=== PATIENT | female | born 1990 | race Caucasian/White ===

== ENCOUNTER 2019-06-16 09:43 | Emergency (ER) | payer OTHER, SELFPAY ==
[2019-06-16 09:48] VITALS: BP 130/72; PULSE 59; RESP 16; TEMP 36.6; O2SAT 100; BMI 19.8
--- NOTE | 2019-06-16 09:53 | ED_ITS ---
HPI - General Adult General: Chief complaint: General Medical Stated complaint: SYNCOPE Time Seen by Provider: 06/16/19 09:51 Source: patient Mode of arrival: ambulatory Limitations: no limitations History of Present Illness: HPI narrative: Patient was diagnosed with the flu yesterday at the [facility] [place]. Patient reports last night becoming lightheaded and passing out and then having a repeat episode this morning after breakfast. Patient reports poor appetite and poor fluid intake. Patient appears unwell. Patient appears in no pain. Review of Systems General: Reports: 10 or more systems reviewed and unremarkable except in HPI and below Neuro: Reports: other (syncopal episode x2) PFS ED PFSH: Statuses (acute, chronic, etc) shown below reflect problem list status as previously entered and may not be historically accurate Social History Smoking and tobacco status: never smoked Physical Exam Const: COMMON NORMALS: no apparent distress and oriented x3 GENERAL APPEARANCE: cooperative HENMT: COMMON NORMALS: normocephalic, external ears normal, EAC's normal and TM's normal bilaterally HEAD & SCALP: normal to inspection and normocephalic FACE & SINUS: normal facial exam NOSE: nasal discharge GENERAL EAR: hearing not grossly impaired EXTERNAL EAR: Yes external ears normal EXTERNAL AUDITORY CANAL: EAC's normal TYMPANIC MEMBRANE: TM's normal bilaterally MOUTH: moist mucous membranes not abnormal THROAT: posterior oropharynx normal Eye: COMMON NORMALS: PERRL and EOMs intact bilaterally PUPIL: Yes PERRL Neck/C-Spine: COMMON NORMALS: full ROM and no lymphadenopathy Lymph: LYMPHATIC: no lymphedema noted Chest: COMMONS NORMALS: inspection of chest normal and palpation of chest normal Resp: COMMON NORMALS: normal respiratory effort and clear to auscultation bilaterally AUSCULTATION: clear to auscultation bilaterally Cardio: COMMON NORMALS: regular rate and regular rhythm RATE: regular rate RHYTHM: regular rhythm GI: COMMON NORMALS: normal to inspection, nondistended, normoactive bowel sounds and non-tender : COMMON NORMALS: Yes no CVA tenderness BLADDER/KIDNEY EXAM: Yes no CVA tenderness Back/Pelvis: COMMON NORMALS: no CVA tenderness and thoracic and lumbar spine normal to inspection Extremity: COMMON NORMALS: normal to inspection GENERAL: No edema Neuro: COMMON NORMALS: oriented x3, moves all extremities and no focal motor deficits Psych: COMMON NORMALS: mental status grossly normal and cooperative Skin: COMMON NORMALS: no rashes or lesions noted GENERAL SKIN EXAM: no rashes or lesions noted Course ED course: 1039, Dr. Iverson assumed care of patient due to low neutrophil count. wjw Vital Signs: Vital signs: Vital Signs Temperature 97.9 F 06/16/19 09:48 Pulse Rate 68 06/16/19 13:02 Respiratory Rate 18 06/16/19 13:02 Blood Pressure 115/55 06/16/19 13:02 Pulse Oximetry 98 06/16/19 13:02 [facility] - General Adult Lab Data: Labs: Lab Results 06/16/19 06/16/19 06/16/19 Range/Units 10:09 10:09 10:15 WBC 1.5 L (4.0-10.0) 10^3/ uL RBC 4.16 (4.1-5.3) 10^6/u L Hgb 12.6 (11.5-15.3) g/dL Hct 38.8 (37.0-47.0) % MCV 93.3 (81-99) fL MCH 30.3 (28.0-34.0) pg MCHC 32.5 (30.0-36.0) g/dL RDW 11.9 L (12.1-15.1) % Plt Count 147 (130-400) 10^3/c mm MPV 10.7 H (7.4-10.4) fL Neut % (Auto) 45.1 % Lymph % (Auto) 44.4 % Clinton % (Auto) 9.8 % Eos % (Auto) 0.0 % Baso % (Auto) 0.0 % Neut # (Auto) 0.7 L* (1.8-7.7) 10^3/u L Lymph # (Auto) 0.7 L (0.8-4.8) 10^3/u L Clinton # (Auto) 0.2 (0.2-0.9) 10^3/u L Eos # (Auto) 0.0 (0.0-0.8) 10^3/u L Baso # (Auto) 0.0 (0.0-0.1) 10^3/u L Nucleated RBC % (a uto) 0 % Nucleated RBCs # 0.0 /100WBC Sodium 139 (136-145) mmol/L Potassium 3.8 (3.5-5.1) mmol/L Chloride 104 (98-107) mmol/L Carbon Dioxide 23 (22-29) mmol/L Anion Gap 15.8 (5-19) BUN 13 (6-20) mg/dL Creatinine 0.8 (0.5-0.9) mg/dL GFR Calculation 86.7 L (90-130) mL/min Glucose 118 H (65-115) mg/dL Lactic Acid 1.1 (0.5-2.2) mmol/L Calcium 8.9 (8.5-10.5) mg/dL Total Bilirubin 0.4 (0.15-1.2) mg/dL AST 28 (0-32) U/L ALT 19 (0-33) U/L Alkaline Phosphata se 54 (35-105) IU/L Total Protein 6.7 (6.6-8.7) g/dL Albumin 4.4 (3.5-5.2) g/dL Globulin 2.3 (1.3-4.6) g/dL Urine Color (Yellow) Urine Appearance (CLEAR) Urine pH (5-7) Ur Specific Gravit y (1.005-1.030) Urine Protein (Negative) Urine Glucose (UA) (Normal) Urine Ketones (Negative) Urine Occult Blood (Negative) Urine Nitrate (Negative) Urine Bilirubin (NEGATIVE) Urine Urobilinogen (Negative) mg/dL Ur Leukocyte Jessi ase (Negative) Urine RBC (0-2) /hpf Urine WBC (0-5) /hpf Ur Squamous Epith Cells (0-5) Urine Bacteria (NONE) Hyaline Casts Urine Mucus Urine HCG, Qual (Negative) Influenza Type A A g (Negative) POC Influenza B Ag (Negative) 06/16/19 06/16/19 06/16/19 Range/Units 11:30 11:43 11:43 WBC (4.0-10.0) 10^3/ uL RBC (4.1-5.3) 10^6/u L Hgb (11.5-15.3) g/dL Hct (37.0-47.0) % MCV (81-99) fL MCH (28.0-34.0) pg MCHC (30.0-36.0) g/dL RDW (12.1-15.1) % Plt Count (130-400) 10^3/c mm MPV (7.4-10.4) fL Neut % (Auto) % Lymph % (Auto) % Clinton % (Auto) % Eos % (Auto) % Baso % (Auto) % Neut # (Auto) (1.8-7.7) 10^3/u L Lymph # (Auto) (0.8-4.8) 10^3/u L Clinton # (Auto) (0.2-0.9) 10^3/u L Eos # (Auto) (0.0-0.8) 10^3/u L Baso # (Auto) (0.0-0.1) 10^3/u L Nucleated RBC % (a uto) % Nucleated RBCs # /100WBC Sodium (136-145) mmol/L Potassium (3.5-5.1) mmol/L Chloride (98-107) mmol/L Carbon Dioxide (22-29) mmol/L Anion Gap (5-19) BUN (6-20) mg/dL Creatinine (0.5-0.9) mg/dL GFR Calculation (90-130) mL/min Glucose (65-115) mg/dL Lactic Acid (0.5-2.2) mmol/L Calcium (8.5-10.5) mg/dL Total Bilirubin (0.15-1.2) mg/dL AST (0-32) U/L ALT (0-33) U/L Alkaline Phosphata se (35-105) IU/L Total Protein (6.6-8.7) g/dL Albumin (3.5-5.2) g/dL Globulin (1.3-4.6) g/dL Urine Color Yellow (Yellow) Urine Appearance Sl hazy (CLEAR) Urine pH 5 (5-7) Ur Specific Gravit y 1.020 (1.005-1.030) Urine Protein Trace (Negative) Urine Glucose (UA) Norm (Normal) Urine Ketones 1+ H (Negative) Urine Occult Blood Neg (Negative) Urine Nitrate Negative (Negative) Urine Bilirubin 1+ H (NEGATIVE) Urine Urobilinogen 1 H (Negative) mg/dL Ur Leukocyte Jessi ase Negative (Negative) Urine RBC 0-4 H (0-2) /hpf Urine WBC 10-15 H (0-5) /hpf Ur Squamous Epith Cells 5-10 H (0-5) Urine Bacteria 1+ H (NONE) Hyaline Casts 0-4 H Urine Mucus 2+ Urine HCG, Qual Negative (Negative) Influenza Type A A g Negative (Negative) POC Influenza B Ag Positive H (Negative) Discharge Plan Discharge Patient Disposition: Home, Self-Care Clinical Impression: Influenza B Condition: Stable Prescriptions: New Tamiflu 75 mg capsule 75 mg PO BID 5 Days Qty: 10 RF: 0 Zofran 4 mg tablet 4 mg PO Q6H PRN (Reason: nausea and vomiting) Qty: 20 RF: 0 Discharge Orders: Discharge Order (Routine); Ordered 06/16/19 Ordered By: Hank Iverson Referrals: Roly Bliss MD [Primary Care Provider] - Discharge Diet: Usual diet Discharge Activity: Increase activity as tolerated Activity Restrictions/Additional Instructions: Follow-up in 4 to 5 days for repeat CBC. Return to the ER if symptoms worsen Stand Alone Forms: Work/School Release Discharge Date/Time: 06/16/19 13:00 Coding Level of Care Code ED Manager Latin for Chg Fwd Exam Problem Focused
--- NOTE | 2019-06-16 09:59 | ECG_ITS ---
Measurements Intervals [place] Rate: 47 P: 59 VT: 137 QRS: 75 QRSD: 78 T: 50 QT: 434 QTc: 386 SINUS BRADYCARDIA WITH MARKED SINUS ARRHYTHMIA POSSIBLE RIGHT VENTRICULAR CONDUCTION DELAY [RSR (QR) IN V1/V2] No previous ECG available for comparison Electronically Signed On 06-17-2019 0:21:49 CLERICAL COORDINATOR by Ariana Hurt M.D. [id number]
[2019-06-16] MEDS: ondansetron 2 mg/ML SDV 2 mL 4 MG IVP (10:20)
[2019-06-16 10:21] VITALS: BP 113/66; PULSE 47; RESP 14; O2SAT 97
[2019-06-16] MEDS: sodium chloride 0.9% 1,000 ML 999 ML IV ×2 (10:21→12:20)
[2019-06-16 10:22] LABS: Hematocrit 38.8 % (37.0-47.0); Hemoglobin 12.6 g/dL (11.5-15.3); Lymphocytes # 0.7 10^3/uL (0.8-4.8); Lymphocytes % 44.4 %; Mean Corpuscular HGB Conc 32.5 g/dL (30.0-36.0); Mean Corpuscular Hemoglobin 30.3 pg (28.0-34.0); Mean Corpuscular Volume 93.3 fL (81-99); Mean Platelet Volume 10.7 fL (7.4-10.4); Monocytes # 0.2 10^3/uL (0.2-0.9); Monocytes % 9.8 %; Neutrophils % 45.1 %; Nucleated Red Blood Cells % 0 %; Platelet Count 147 10^3/cmm (130-400); Red Blood Count 4.16 10^6/uL (4.1-5.3); Red Cell Distribution Width 11.9 % (12.1-15.1); White Blood Count 1.5 10^3/uL (4.0-10.0)
[2019-06-16 10:30] LABS: Neutrophils # 0.7 10^3/uL (1.8-7.7)
[2019-06-16 10:33] VITALS: BP 102/58; PULSE 60; RESP 16; O2SAT 99
--- NOTE | 2019-06-16 10:34 | XR_ITS ---
WS: [id number] ONE VIEW CHEST HISTORY: 28 years old Female with fever AP upright chest no comparison FINDINGS: No pneumothorax, pleural effusion, consolidation/atelectasis. Cardiomediastinal silhouette and pulmon magy vascular markings are unremarkable. No subdiaphragmatic free air. No fracture seen. XR/XR chest 1V portable [id number] IMPRESSION: No acute cardiopulmonary findings.
[2019-06-16 10:36] LABS: Alanine Aminotransferase 19 U/L (0-33); Albumin Level 4.4 g/dL (3.5-5.2); Alkaline Phosphatase 54 IU/L (35-105); Anion Gap 15.8 (5-19); Aspartate Amino Transferase 28 U/L (0-32); Blood Urea Nitrogen 13 mg/dL (6-20); Calcium 8.9 mg/dL (8.5-10.5); Carbon Dioxide 23 mmol/L (22-29); Chloride 104 mmol/L (98-107); Globulin 2.3 g/dL (1.3-4.6); Glomerular Filtration Rate 86.7 mL/min (90-130); Glucose 118 mg/dL (65-115); Potassium 3.8 mmol/L (3.5-5.1); Sodium 139 mmol/L (136-145); Total Bilirubin 0.4 mg/dL (0.15-1.2); Total Protein 6.7 g/dL (6.6-8.7)
--- NOTE | 2019-06-16 10:37 | CT_ITS ---
WS: [id number] CT HEAD HISTORY: 28 years old Female with head trauma with LOC COMPARISON: None available. TECHNIQUE: 2.[address] images of the head With 2-D reformats. DLP: 746.[address] scans at [facility] use at least one of these dose optimization techniques: automat ed exposure control; mA and/or kV adjustment per patient size (includes targeted exams where dose is matched to clinical indication); or iterative reconstruction. FINDINGS: No intracranial hemorrhage, midline shift, or other mass effect. Brain parenchymal attenuation, jordan- white matter differentiation, ventricular configuration, and basilar cisterns unremarkable. No extra- axial or intraventricular attenuation abnormality. No depressed or linear skull fracture seen. Included and orbital soft tissues unremarkable. Clear mas toid air cells and included paranasal sinuses. Calvarium intact. Scalp and remaining extra cranial sp aces and soft tissues are unremarkable. CT/CT head wo con* [id number] IMPRESSION: No intracranial hemorrhage or mass effect.
[2019-06-16 11:04] LABS: Lactic Sepsis W/Reflex 1.1 mmol/L (0.5-2.2)
[2019-06-16 11:51] VITALS: PULSE 57; RESP 16; O2SAT 99
[2019-06-16] MEDS: ipratropium-albuterol 3 mL Neb INHALATION (11:51)
[2019-06-16 11:55] VITALS: PULSE 61
[2019-06-16 12:23] LABS: Influenza A by IFA Negative (Negative); Influenza B by IFA Positive (Negative)
[2019-06-16 12:36] LABS: Add Urine Microscopic? YES; Bilirubin Urine 1+ (NEGATIVE); Blood Urine Neg (Negative); Glucose Urine UA Norm (Normal); Ketones Urine 1+ (Negative); Leukocyte Esterase Urine Negative (Negative); Nitrate Urine Negative (Negative); Protein Urine Trace (Negative); Urine Appearance SL Hazy (CLEAR); Urine Color Yellow (Yellow); Urobilinogen Urine 1 mg/dL (Negative); pH Urine 5 (5-7)
[2019-06-16 12:43] LABS: Hyaline Casts Urine 0-4; Mucus Urine 2+
[2019-06-16 12:44] LABS: Bacteria Urine 1+; RBC Urine 0-4 /hpf (0-2)
[2019-06-16 12:45] LABS: Add Urine Culture? No
[2019-06-16 13:02] VITALS: BP 115/55; PULSE 68; RESP 18; O2SAT 98
== END 2019-06-16 13:00 | disposition home or self-care (01) ==
PROVIDERS: Nurse Practitioner Family; Emergency Provider Family Medicine; Family Provider Family Medicine; PCP Family Medicine
DX: J10.1 Influenza due to other identified influenza virus with other respiratory manifestations (principal)
CPT/HCPCS: 36415; 70450; 71045; 80053; 81001; 81025; 83605; 85025; 87040; 87804; 93005; 94640; 96360; 96361; 96365; 96366; 96375; 99283; J2405; J7030

== ENCOUNTER → 2024-06-14 15:59 | Outpatient (BNVA) | payer OTHER, SELFPAY | PROVIDERS: Family Provider Family Medicine; PCP Family Medicine; Visit Provider Nurse Practitioner Women's Health | DX: N92.6 Irregular menstruation, unspecified (principal); Z01.419 Encounter for gynecological examination (general) (routine) without abnormal findings | CPT/HCPCS: 82306; 83036; 84146; 84403; 84439; 84443; 87624 ==